=== PATIENT | female | born 2000 | race Two or more races ===

== ENCOUNTER → 2023-01-22 | Outpatient (CLI) | payer OTHER | LOC: M WHC 10:01 | PROVIDERS: ATTEND Obstetrics & Gynecology | DX: O26.849 Uterine size-date discrepancy, unspecified trimester (principal); Z3A.37 37 weeks gestation of pregnancy ==

== ENCOUNTER 2023-02-14 10:15 | Inpatient (IN) | payer OTHER ==
[~2023-02-14] VITALS: Ht 157.5 cm; Wt 65.1 kg
[2023-02-14] VITALS (14 sets, daily range): BP systolic 108–138; BP diastolic 58–80; O2SAT 96
[2023-02-14] MEDS ORDERED: LACTATED RINGER'S 1000 ML IV STA (10:29)
[2023-02-14] MEDS ORDERED: OXYTOCIN DRIP 30 UNITS in IV 1 EA IV PRN ×6 (10:30)
[2023-02-14] MEDS ORDERED: METHYLERGONOVINE MALEATE 0.2MG/ML 1ML VIAL IM PRN (10:30)
[2023-02-14] MEDS ORDERED: TRANEXAMIC ACID INJection 1,000 MG in NS 100 ML IV PRN (10:30)
[2023-02-14] MEDS ORDERED: LR 1,000 ML IV SCH ×2 (10:30→17:55)
[2023-02-14] MEDS ORDERED: CARBOPROST TROMETHAMINE 250 MCG/ML AMP IM PRN (10:30)
[2023-02-14] MEDS ORDERED: OXYTOCIN INJ 10UNITS/ML 1ML VIAL IM PRN (10:30)
[2023-02-14] MEDS ORDERED: LIDOCAINE 1% MDV 20ML VIAL INFIL PRN (10:30)
[2023-02-14] MEDS ORDERED: VITA500C24 PO (10:34)
[2023-02-14] MEDS ORDERED: FERR325T3 PO (10:34)
[2023-02-14] MEDS ORDERED: PRENTAB9 PO (10:34)
[2023-02-14 11:24] LABS: HEMATOCRIT 37.1 % (36.0-47.0); HEMOGLOBIN 11.8 g/dl (12.0-15.5); MEAN CORPUSCULAR HGB CONC 31.8 g/dl (32.0-36.5); MEAN CORPUSCULAR VOLUME 88.1 fl (80.0-96.0); PLATELET COUNT, AUTOMATED 196 10^3/uL (150-450); RED BLOOD COUNT 4.21 10^6/uL (4.00-5.40); WHITE BLOOD COUNT 8.6 10^3/uL (4.0-10.0)
[2023-02-14 11:50] LABS: LDH LACTATE DEHYDROGENASE 264 U/L (120-246)
[2023-02-14 11:51] LABS: ALT/SGPT 13 U/L (7.0-40); AST/SGOT 28 U/L (<34); BILIRUBIN,TOTAL 0.4 MG/DL (0.3-1.2); CREATININE FOR GFR 0.45 MG/DL (0.55-1.30); GLOMERULAR FILTRATION RATE > 60.0 (>60)
[2023-02-14] MEDS ORDERED: HOME MED LIST COMPLETE! XX SCH (11:55)
[2023-02-14 12:09] LABS: URIC ACID 4.6 MG/DL (3.1-7.8)
[2023-02-14] MEDS ORDERED: OXYTOCIN 30UNITS IN 0.9% NaCl 500ML IV BAG As Ordered ONE ×2 (16:42→17:51)
[2023-02-14] MEDS ORDERED: DOCUSATE SODIUM 100MG CAPSULE PO PRN (17:55)
[2023-02-14] MEDS ORDERED: ACETAMINOPHEN TAB 650MG DOSE (2X325MG) PO PRN (17:55)
[2023-02-14] MEDS ORDERED: PROMETHAZINE 25 MG TAB PO PRN (17:55)
[2023-02-14] MEDS ORDERED: OXYTOCIN DRIP 30 UNITS in IV 1 EA IV SCH ×4 (17:55)
[2023-02-14] MEDS ORDERED: RHOGAM 300MCG (1500IU) INJ IM SCH (17:55)
[2023-02-14] MEDS ORDERED: MOM 30ML SUSPENSION UDC PO PRN (17:55)
[2023-02-14] MEDS ORDERED: DIBUCAINE 1% OINTMENT 30GM TOP PRN (17:55)
[2023-02-14] MEDS ORDERED: IBUPROFEN 800 MG TAB PO PRN (17:55)
[2023-02-14] MEDS ORDERED: ACETAMINOPHEN 500 MG TAB PO PRN (17:55)
[2023-02-14] MEDS ORDERED: METHYLERGONOVINE MALEATE 0.2 MG TAB PO PRN (17:55)
[2023-02-14] MEDS ORDERED: IBUPROFEN 600MG TAB PO PRN (17:55)
[2023-02-15 05:44] VITALS: BP 104/60; O2SAT 100
[2023-02-15] MEDS ORDERED: PRENATAL VITAMINS CHEWABLE TABLET PO SCH (09:00)
[2023-02-15] MEDS: PRENATAL VITAMINS CHEWABLE TABLET PO SCH (09:00)
[2023-02-15 18:00] VITALS: BP 118/76; O2SAT 98
[2023-02-16 06:00] VITALS: BP 119/72; O2SAT 99
[2023-02-16] MEDS ORDERED: INFLUENZA QUADRIVALENT PF VACCINE 0.5ML SYRINGE IM.IMMUN ONE (09:00)
[2023-02-16] MEDS ORDERED: MEASLES,MUMPS,RUBELLA VACCINE INJ (MMR-II) SC.IMMUN ONE (09:00)
[2023-02-16] MEDS: PRENATAL VITAMINS CHEWABLE TABLET PO SCH (11:26)
== END 2023-02-16 18:45 | disposition home or self-care (01) | DRG 807 ==
LOC: M LDO 10:15 → M LDI 10:42 → M OBS 19:50
PROVIDERS: ADMIT Obstetrics & Gynecology; ATTEND Obstetrics & Gynecology
PROC: 10E0XZZ Delivery of Products of Conception, External Approach (ICD-10-PCS; principal; 2023-02-14)
PROC: 0KQM0ZZ Repair Perineum Muscle, Open Approach (ICD-10-PCS; 2023-02-14)
PROC: 10907ZC Drainage of Amniotic Fluid, Therapeutic from Products of Conception, Via Natural or Artificial Opening (ICD-10-PCS; 2023-02-14)
DX: O48.0 Post-term pregnancy (principal); Z37.0 Single live birth; Z3A.41 41 weeks gestation of pregnancy; O70.1 Second degree perineal laceration during delivery